=== PATIENT | female | born 1995 | race Two or more races ===

== ENCOUNTER 2016-10-23 23:49 | Emergency (ER) | payer SELFPAY ==
[~2016-10-23] VITALS: Ht 152.4 cm; Wt 81.6 kg
[~2016-10-23 23:49] MED LIST: CIPR250T30 PO; ERYT1OIN6 RIGHTEYE
[2016-10-24] MEDS ORDERED: ONDANSETRON PF 4 MG/2 ML VIAL. IV ONE (01:15)
[2016-10-24] MEDS ORDERED: IV NORMAL SALINE 1000ML BAG 1,000 ML IV ONE (01:15)
[2016-10-24] MEDS ORDERED: AZITHROMYCIN 250 MG TABLET. PO ONE (01:15)
[2016-10-24] MEDS ORDERED: KETOROLAC 15 MG/ML VIAL. IV ONE (01:15)
[2016-10-24 01:19] LABS: BILIRUBIN,URINE NEGATIVE (NEG); GLUCOSE,URINE NEGATIVE (NEG); NITRITE,URINE NEGATIVE (NEG); PH,URINE 6.5; PROTEIN,URINE NEGATIVE (NEG-TRACE)
[2016-10-24 01:31] LABS: BACTERIA,URINE MANY /HPF (0-FEW); SQUAMOUS EPITHELIAL CELL,UR MOD /LPF; WBC,URINE >40 /HPF (0-4)
[2016-10-24 01:46] LABS: CALCIUM 9.3 mg/dL (8.5-10.1); CREATININE 0.7 mg/dL (0.6-1.0); GFR 106.7; POTASSIUM 3.6 mmol/L (3.5-5.1)
[2016-10-24 01:52] LABS: ALBUMIN 4.3 g/dL (3.4-5.0); TOTAL BILIRUBIN 0.8 mg/dL (0.2-1.0); TOTAL PROTEIN 8.6 g/dL (6.4-8.2)
[2016-10-24] MEDS ORDERED: ONDA4TAB10 SL (02:10)
[2016-10-24] MEDS ORDERED: AZIT250T PO (02:10)
[2016-10-24] MEDS ORDERED: CEPH-264 PO (02:10)
--- NOTE | 2016-10-24 02:10 | PHYS DOC ---
Past Medical History Past Medical History: Asthma Past Surgical History: No Surgical History Alcohol Use: None Drug Use: None Adult General Chief Complaint Chief Complaint: ABDOMINAL PAIN HPI HPI Patient is a 21 year old female presents here today complaining of abdominal pain as well as ear pain is been going on for approximately 1 day. Patient denies any diarrhea. Patient has a dysuria frequency or urgency. Patient denies any fevers shakes chills. Patient denies any fevers shakes chills. Patient reports she's had nausea vomiting 5 today. Patient denies any diarrhea. Patient 's last menstrual period was September 12, 2016. Patient denies any history of hypertension diabetes liver or kidney problems. Patient does have a history of asthma patient has no surgical history. Patient does not smoke drink or do drugs. Patient is not allergic to any medications. Patient denies any sore throat. Patient is tolerating by mouth's well. Patient's physical exam was remarkable for her right ear having an extremely swollen erythematous bulging right tympanic membrane. Patient has no discharge. Patient's left TM is normal. Patient has no lymphadenopathy. His oropharynx is clear. There is no pharyngeal erythema or exudates. There is no trismus. Patient has no nuchal rigidity chronic center presents he sign. Patient's abdominal exam was soft nondistended no rebound or guarding. Patient does have some tenderness to palpation in the suprapubic region. Patient has normal active bowel sounds. Patient does not present with any signs or symptoms that'll be consistent with an acute surgical abdomen. Patient's ER workup is been unremarkable. Patient's test was negative. Patient's UA was positive for urinary tract infection. Patient's like joints were all within normal limits. Assessment and plan #1 right otitis media. Patient was given a dose of Zithromax by mouth here and will be sent home on a Z-El. I am concerned that the patient would have bullous myringitis. I believe that a macrolide to be in her best interest. #2: Urinary tract infection: Patient is clinically and hemodynamically stable. Patient was given a dose of Rocephin IV in the ER be sent home on Keflex as well. Review of Systems Review of Systems Constitutional: Denies fever or chills [] Eyes: Denies change in visual acuity, redness, or eye pain [] All other review systems are negative except as documented in the history of present illness portion. Current Medications Current Medications Current Medications Medications (Trade) Dose Ordered Sig/Rupa Start Time Stop Time Status Last Admin Dose Admin Azithromycin (Zithromax) 500 mg 1X ONCE 10/24/16 01:15 10/24/16 01:16 DC 10/24/16 01:15 500 MG Ketorolac Tromethamine (Toradol) 15 mg 1X ONCE 10/24/16 01:15 10/24/16 01:16 DC 10/24/16 01:15 15 MG Ondansetron HCl (Zofran) 4 mg 1X ONCE 10/24/16 01:15 10/24/16 01:16 DC 10/24/16 01:15 4 MG Sodium Chloride 1,000 ml @ 1,000 mls/hr 1X ONCE 10/24/16 01:15 10/24/16 02:14 10/24/16 01:15 1,000 MLS/HR Allergies Allergies Allergies Coded Allergies Type Severity Reaction Last Updated Verified No Known Drug Allergies 11/17/15 No Physical Exam Physical Exam Constitutional: Well developed, well nourished, no acute distress, non-toxic appearance. [] HENT: Normocephalic, atraumatic, bilateral external ears normal, oropharynx moist, no oral exudates, nose normal. See above [] Eyes: PERRLA, EOMI, conjunctiva normal, no discharge. [] Neck: Normal range of motion, no tenderness, supple, no stridor. [] Cardiovascular:Heart rate regular rhythm, no murmur [] Lungs & Thorax: Bilateral breath sounds clear to auscultation [] Abdomen: Bowel sounds normal, soft, see above, no masses, no pulsatile masses. [ ] Skin: Warm, dry, no erythema, no rash. [] Back: No tenderness, no CVA tenderness. [] Extremities: No tenderness, no cyanosis, no clubbing, ROM intact, no edema. [] Neurologic: Alert and oriented X 3, normal motor function, normal sensory function, no focal deficits noted. [] Psychologic: Affect normal, judgement normal, mood normal. [] Current Patient Data Vital Signs Vital Signs Date Time Temp Pulse Resp B/P (MAP) Pulse Ox O2 Delivery O2 Flow Rate FiO2 10/24/16 00:07 98.7 90 27 128/71 (90) 97 Room Air 98.7 Lab Values Laboratory Tests Test 10/24/16 00:07 Urine Collection Type Unknown Urine Color Yellow Urine Clarity Cloudy Urine pH 6.5 Urine Specific [place] >=1.030 Urine Protein Negative mg/dL (NEG-TRACE) Urine Glucose (UA) Negative mg/dL (NEG) Urine Ketones (Stick) Trace mg/dL (NEG) Urine Blood Negative (NEG) Urine Nitrite Negative (NEG) Urine Bilirubin Negative (NEG) Urine Urobilinogen Dipstick 1.0 mg/dL (0.2 mg/dL) Urine Leukocyte Esterase Large (NEG) Urine RBC 6-10 /HPF (0-2) Urine WBC >40 /HPF (0-4) Urine Squamous Epithelial Cells Mod /LPF Urine Bacteria Many /HPF (0-FEW) Sodium Level 140 mmol/L (136-145) Potassium Level 3.6 mmol/L (3.5-5.1) Chloride Level 103 mmol/L (98-107) Carbon Dioxide Level 28 mmol/L (21-32) Anion Gap 9 (6-14) Blood Urea Nitrogen 7 mg/dL (7-20) Creatinine 0.7 mg/dL (0.6-1.0) Estimated GFR (Cockcroft-Gault) 106.7 BUN/Creatinine Ratio 10 (6-20) Glucose Level 91 mg/dL (70-99) Calcium Level 9.3 mg/dL (8.5-10.1) Total Bilirubin 0.8 mg/dL (0.2-1.0) Aspartate Amino Transferase (AST) 15 U/L (15-37) Alanine Aminotransferase (ALT) 21 U/L (14-59) Alkaline Phosphatase 98 U/L (46-116) Total Protein 8.6 g/dL (6.4-8.2) H Albumin 4.3 g/dL (3.4-5.0) Albumin/Globulin Ratio 1.0 (1.0-1.7) Lipase 84 U/L (73-393) Laboratory Tests 10/24/16 00:07 EKG EKG [] Radiology/Procedures Radiology/Procedures [] Course & Med Decision Making Course & Med Decision Making Pertinent Labs and Imaging studies reviewed. (See chart for details) [] Dragon Disclaimer Dragon Disclaimer This electronic medical record was generated, in whole or in part, using a voice recognition dictation system. Departure Departure Impression: Primary Impression: Otitis media Additional Impression: Urinary tract infection Disposition: 01 HOME, SELF-CARE Condition: IMPROVED Referrals: NO PCP (PCP) Patient Instructions: Abdominal Pain (Nonspecific), Otitis Media, Adult, Urinary Tract Infection Scripts Ondansetron (ZOFRAN ODT) 4 Mg Tab.rapdis 1 TAB SL Q6HRS Y for NAUSEA, #12 TAB Prov: RON ÁLVAREZ MD 10/24/16 Azithromycin (ZITHROMAX) 250 Mg Tablet 1 PKG PO UD, #6 TAB Prov: RON ÁLVAREZ MD 10/24/16 Cephalexin (KEFLEX) 500 Mg Capsule 500 MG PO QID for 10 Days, CAP Prov: RON ÁLVAREZ MD 10/24/16 Problem Qualifiers Primary Impression: Otitis media Otitis media type: suppurative Laterality: right Chronicity: acute Recurrence: not specified as recurrent Spontaneous tympanic membrane rupture: without spontaneous rupture Qualified Codes: H66.001 - Acute suppurative otitis media without spontaneous rupture of ear drum, right ear Additional Impression: Urinary tract infection Urinary tract infection type: acute cystitis Hematuria presence: without hematuria Qualified Codes: N30.00 - Acute cystitis without hematuria RON ÁLVAREZ MD Oct 24, 2016 02:10
[2016-10-24 03:04] VITALS: BP 92/53
== END 2016-10-24 03:01 | disposition home or self-care (01) ==
LOC: ER 23:49
DX: H66.001 Acute suppurative otitis media without spontaneous rupture of ear drum, right ear (principal); N30.00 Acute cystitis without hematuria; J45.909 Unspecified asthma, uncomplicated
CPT/HCPCS: 36415; 80053; 81001; 81025; 83690; 87086; 96361; 96365; 96375; 99284; J0690; J1885; J2405; J7030; Q0144

== ENCOUNTER 2016-12-23 05:56 | Emergency (ER) | payer SELFPAY ==
[~2016-12-23] VITALS: Ht 152.4 cm; Wt 54.4 kg
[~2016-12-23 05:56] MED LIST changes: +AZIT250T PO; +CEPH-264 PO; +ONDA4TAB10 SL
[2016-12-23 06:32] LABS: BILIRUBIN,URINE NEGATIVE (NEG); GLUCOSE,URINE NEGATIVE (NEG); NITRITE,URINE NEGATIVE (NEG); PH,URINE 5.5; PROTEIN,URINE NEGATIVE (NEG-TRACE); UROBILINOGEN,URINE 0.2 mg/dL (0.2 mg/dL)
[2016-12-23 06:39] LABS: BACTERIA,URINE MODERATE /HPF (0-FEW); SQUAMOUS EPITHELIAL CELL,UR MOD /LPF; WBC,URINE >40 /HPF (0-4)
--- NOTE | 2016-12-23 08:58 | RAD ---
Pelvic ultrasound to include transabdominal and transvaginal imaging 12/23/2016 Clinical history: Patient recently had a positive test which is now negative. Pelvic cramping. Technique: Using the distended urinary bladder as a sonographic window, a real-time ultrasound examination of the pelvis was performed. Additionally in attempt to better evaluate the uterus and adnexa, a transvaginal ultrasound study was performed. Multiple images were obtained. Findings: The uterus is within normal limits in size and echogenicity. It measures 6.9 x 5.7 x 3.9 cm in longitudinal, transverse, and AP dimensions. The endometrial echo complex measures 1.2 cm in thickness which is within normal limits. No gestational sac is seen within the uterus. A 1.2 cm nabothian cyst is seen within the cervix. The right ovary is normal in size and echogenicity. It measures 3.3 x 1.9 x 1.5 cm in size. A 2.3 cm dominant follicle is seen projecting from the right ovary. The left ovary is normal in size. It measures 4.1 x 2.6 x 2.3 cm in size. Within the left ovary, an oval-shaped anechoic structure is seen which measures 3.7 cm in size. This is consistent with a simple cyst. No free fluid is noted. Impression: 3.7 cm left ovarian cyst. Otherwise negative study.
[2016-12-23] MEDS ORDERED: METR500T8 PO (09:50)
--- NOTE | 2016-12-23 09:50 | PHYS DOC ---
Past Medical History Past Medical History: Anxiety Past Surgical History: No Surgical History Alcohol Use: None Drug Use: None Adult General Chief Complaint Chief Complaint: ABDOMINAL PAIN HPI HPI Patient is a 21 year old female who presents with a complaint of lower abdominal pain, vaginal discharge, and positive test. Patient states she took a test at home 1 week ago that was positive. Patient has not had a visit. Patient previously had a Mirena and it was removed 3 years ago because of side effects. She now uses condoms 100% of the time. She has had monthly periods since June of this year early in each month, her last period was November 15. It was more just spotting for 3 days. It was a light period. This month she has not yet had one yet. Also complains of vaginal discharge that is light green in color and "mucousy". She's had that for a few days. Also complains of urinary burning, denies fever, denies vomiting. Review of Systems Review of Systems Constitutional: Denies fever or chills [] Respiratory: Denies cough or shortness of breath [] Cardiovascular: Denies chest pain GI: As in history of present illness : As in history of present illness Musculoskeletal: Denies back pain or joint pain [] Integument: Denies rash or skin lesions [] Neurologic: Denies headache, focal weakness or sensory changes [] Allergies Allergies Allergies Coded Allergies Type Severity Reaction Last Updated Verified No Known Drug Allergies 11/17/15 No Physical Exam Physical Exam Constitutional: Well developed, well nourished, no acute distress, non-toxic appearance. Alert, mentating normally, warm and dry. HENT: Normocephalic, atraumatic, bilateral external ears normal, nose normal. [] Eyes: conjunctiva normal, no discharge. [] Neck: Normal range of motion, no stridor. [] Cardiovascular:Heart rate regular rhythm, no murmur [] Lungs & Thorax: Bilateral breath sounds clear to auscultation [] Abdomen: Bowel sounds normal, soft, no tenderness, no masses, no pulsatile masses. Pelvic exam: External genitalia normal. Vaginal vault with moderate amount of discharge. No cervicitis. Bimanual exam: No cervical motion tenderness. Uterus not enlarged or tender. Mild left adnexal tenderness without mass. No right adnexal tenderness. Skin: Warm, dry, no erythema, no rash. [] Extremities: No tenderness, no cyanosis, no clubbing, ROM intact, no edema. [] Neurologic: Alert and oriented X 3, normal motor function, normal sensory function, no focal deficits noted. [] Current Patient Data Vital Signs Vital Signs Date Time Temp Pulse Resp B/P (MAP) Pulse Ox O2 Delivery O2 Flow Rate FiO2 12/23/16 10:00 62 18 109/58 (75) 98 12/23/16 06:10 97.8 Room Air 97.8 Lab Values Laboratory Tests Test 12/23/16 05:26 12/23/16 06:18 POC Urine HCG, Qualitative Hcg negative (Negative) Urine Collection Type Unknown Urine Color Yellow Urine Clarity Hazy Urine pH 5.5 Urine Specific [place] >=1.030 Urine Protein Negative mg/dL (NEG-TRACE) Urine Glucose (UA) Negative mg/dL (NEG) Urine Ketones (Stick) Negative mg/dL (NEG) Urine Blood Negative (NEG) Urine Nitrite Negative (NEG) Urine Bilirubin Negative (NEG) Urine Urobilinogen Dipstick 0.2 mg/dL (0.2 mg/dL) Urine Leukocyte Esterase Moderate (NEG) Urine RBC 3-5 /HPF (0-2) Urine WBC >40 /HPF (0-4) Urine Squamous Epithelial Cells Mod /LPF Urine Bacteria Moderate /HPF (0-FEW) Urine Mucus Marked /LPF Microbiology 12/23/16 Wet Prep - Final, Complete EKG EKG [] Radiology/Procedures Radiology/Procedures REASON: had pos preg last week, now neg, c/o cramping PROCEDURE: PELVIS W/TV Pelvic ultrasound to include transabdominal and transvaginal imaging 12/23/2016 Clinical history: Patient recently had a positive test which is now negative. Pelvic cramping. Technique: Using the distended urinary bladder as a sonographic window, a real-time ultrasound examination of the pelvis was performed. Additionally in attempt to better evaluate the uterus and adnexa, a transvaginal ultrasound study was performed. Multiple images were obtained. Findings: The uterus is within normal limits in size and echogenicity. It measures 6.9 x 5.7 x 3.9 cm in longitudinal, transverse, and AP dimensions. The endometrial echo complex measures 1.2 cm in thickness which is within normal limits. No gestational sac is seen within the uterus. A 1.2 cm nabothian cyst is seen within the cervix. The right ovary is normal in size and echogenicity. It measures 3.3 x 1.9 x 1.5 cm in size. A 2.3 cm dominant follicle is seen projecting from the right ovary. The left ovary is normal in size. It measures 4.1 x 2.6 x 2.3 cm in size. Within the left ovary, an oval-shaped anechoic structure is seen which measures 3.7 cm in size. This is consistent with a simple cyst. No free fluid is noted. Impression: 3.7 cm left ovarian cyst. Otherwise negative study. [] Course & Med Decision Making Course & Med Decision Making Pertinent Labs and Imaging studies reviewed. (See chart for details) 21-year-old female who had a positive home test but her test is negative in the emergency department. Ultrasound unremarkable, I don't know how to explain that that she may have had a very early or a false positive. Another complaint was vaginal discharge and she had a wet prep positive for Trichomonas. We will treat that. I did send GC and chlamydia as well. See instructions for plan. [] Dragon Disclaimer Dragon Disclaimer This electronic medical record was generated, in whole or in part, using a voice recognition dictation system. Departure Departure Impression: Primary Impression: Not currently Additional Impression: Trichimoniasis Disposition: HOME, SELF-CARE Condition: STABLE Referrals: NO PCP (PCP) Patient Instructions: Trichomoniasis-Brief Additional Instructions: Today, test here was negative, and also ultrasound did not show any evidence of . Your discharge is caused by Trichomonas. This is a sexually transmitted infection. Ask your partner to be treated as well. Scripts Metronidazole (METRONIDAZOLE) 500 Mg Tablet 1 TAB PO BID for Trichomonas, #14 TAB Prov: GATO GALICIA MD 12/23/16 Problem Qualifiers GATO GALICIA MD Dec 23, 2016 09:50
[2016-12-23 10:00] VITALS: BP 109/58
== END 2016-12-23 10:00 | disposition home or self-care (01) ==
LOC: ER 05:56
DX: A59.9 Trichomoniasis, unspecified (principal); F41.9 Anxiety disorder, unspecified
CPT/HCPCS: 76830; 76856; 81001; 81025; 87086; 87491; 87591; 99285; Q0111

== ENCOUNTER 2019-09-05 16:33 | Emergency (ER) | payer SELFPAY ==
[~2019-09-05] VITALS: Ht 152.4 cm; Wt 67.0 kg
[~2019-09-05 16:33] MED LIST changes: +METR-34 PO
[2019-09-05 16:56] VITALS: BP 110/58
[2019-09-05] MEDS ORDERED: CEPH-264 PO (16:59)
--- NOTE | 2019-09-05 16:59 | PHYS DOC ---
Past Medical History Past Medical History: Anxiety Past Surgical History: No Surgical History Smoking Status: Never Smoker Alcohol Use: None Drug Use: None General Adult EDM: Chief Complaint: SKIN PROBLEM HPI: HPI: Patient is a 23 year old female who presents with noticed last night she has a small tender bump on her right labia. No fevers. She rates her pain a 8/10. Review of Systems: Review of Systems: Integument: Denies rash. Right labia abscess. [] Heart Score: Risk Factors: Risk Factors: DM, Current or recent (<one month) smoker, HTN, HLP, family history of CAD, obesity. Risk Scores: Score 0 - 3: 2.5% MACE over next 6 weeks - Discharge Home Score 4 - 6: 20.3% MACE over next 6 weeks - Admit for Clinical Observation Score 7 - 10: 72.7% MACE over next 6 weeks - Early Invasive Strategies Allergies: Allergies: Allergies Coded Allergies Type Severity Reaction Last Updated Verified No Known Drug Allergies 11/17/15 No Physical Exam: PE: Constitutional: Well developed, well nourished, no acute distress, non-toxic appearance. [] HENT: Normocephalic, atraumatic, bilateral external ears normal, oropharynx moist, no oral exudates, nose normal. [] Eyes: PERRLA, EOMI, conjunctiva normal, no discharge. [] Neck: Normal range of motion, no tenderness, supple, no stridor. [] Cardiovascular:Heart rate regular rhythm, no murmur [] Lungs & Thorax: Bilateral breath sounds clear to auscultation [] Abdomen: Bowel sounds normal, soft, no tenderness, no masses, no pulsatile masses. [] Skin: Warm, dry, no erythema, no rash. Right labia pea sized hard abscess. [] Back: No tenderness, no CVA tenderness. [] Extremities: No tenderness, no cyanosis, no clubbing, ROM intact, no edema. [] Neurologic: Alert and oriented X 3, normal motor function, normal sensory function, no focal deficits noted. [] Psychologic: Affect normal, judgement normal, mood normal. [] EKG: EKG: [] Radiology/Procedures: Radiology/Procedures: [] Course & Med Decision Making: Course & Med Decision Making Pertinent Labs and Imaging studies reviewed. (See chart for details) No cellulitis to labia. A small peas sized hard, nonfluctuating bump is felt but not seen. 1+ swelling to labia. Patient is educated to use sitz bath. No I&D is needed at this time. Patient is educated to follow up here in 48 hours for a recheck. [] Sarah Disclaimer: Sarah Disclaimer: This electronic medical record was generated, in whole or in part, using a voice recognition dictation system. Departure Departure Impression: Primary Impression: Abscess Disposition: HOME, SELF-CARE Condition: STABLE Referrals: NO PCP (PCP) Patient Instructions: Abscess, Sitz Bath, [id number] Additional Instructions: Follow up here or with primary care in 48 hours for a recheck to make sure it is not getting worse. Take Ibuprofen for pain. Scripts Cephalexin (KEFLEX) 500 Mg Capsule 1 CAP PO TID for 7 Days, #21 CAP 0 Refills Prov: ADILENE MCMANUS APRN 09/05/19 ADILENE MCMANUS APRN Sep 05, 2019 16:59
== END 2019-09-05 17:03 | disposition home or self-care (01) ==
LOC: ER 16:33
DX: N76.4 Abscess of vulva (principal)
CPT/HCPCS: 99283